=== PATIENT | female | born 1950 ===

== ENCOUNTER → 2017-11-14 | Emergency (ER) | payer OTHER ==
[~2017-11-14] VITALS: Ht 160 cm; Wt 62.6 kg
[~2017-11-14] MED LIST: COZAAR100 MG PO; GLYXAMBI 10 MG1 EACH; LEVEMIR FL100 UNIT/1; VERAPAMIL ER240 MG PO
== END | disposition home or self-care (01) ==
LOC: ER 17:34
DX: J45.998 Other asthma (principal); J40 Bronchitis, not specified as acute or chronic; J11.1 Influenza due to unidentified influenza virus with other respiratory manifestations